=== PATIENT | female | born 1980 | race Caucasian/White ===

== ENCOUNTER 2018-04-15 16:56 | Emergency (ER) | payer MEDICAID ==
[~2018-04-15] VITALS: Ht 175.3 cm; Wt 63.6 kg
[2018-04-15 17:05] VITALS: BP 118/81
[2018-04-15] MEDS ORDERED: ONDA4TAB9 SL (18:04)
[2018-04-15] MEDS ORDERED: HYDR-3686 PO (18:04)
== END 2018-04-15 18:22 | disposition home or self-care (01) ==
LOC: ER 16:57
DX: F11.20 Opioid dependence, uncomplicated (principal); Z79.899 Other long term (current) drug therapy
CPT/HCPCS: 99283